=== PATIENT | male | born 1985 | race Two or more races ===

== ENCOUNTER → 2018-10-02 | Outpatient (CLI) | END | disposition home or self-care (01) ==

== ENCOUNTER → 2018-11-03 | Outpatient (CLI) | END | disposition home or self-care (01) ==

== ENCOUNTER → 2018-12-19 | Outpatient (CLI) | payer BC ==
--- NOTE | 2018-12-19 17:07 | CONS ---
Date/Time of Note Date/Time of Note DATE: 12/19/18 TIME: 17:04 Consult Date/Type/Reason Admit Date/Time Initial Consult Date Subjective 33-year-old [id number] male following up today for right shoulder impingement. He has completed 6 weeks of physical therapy. He was taking meloxicam for NSAID regiment. Patient feels significantly better. He did try to play basketball last week and he did have one episode of sharp pain when reaching for rebound, but that quickly resolved. Overall he he is currently pleased with the outcome. Objective Patient vitals reviewed in chart and they are stable and within normal limits. Exam General: Awake, alert, in no acute distress, pleasant and cooperative Heart: regular rhythm Lungs: breathing comfortably, no tachypnea or dyspnea Musculoskeletal: Right shoulder: Skin is intact. There is no atrophy around the shoulder. NTTP. ----- Active = Passive ROM: FE: 160 Abd: 160 ER: 70 IR: T7 Normal lift off or belly press Muscle Strength Supraspinatus: 5/5 Subscapularis: 5/5 Infraspinatus: 5/5 Teres Minor: 5/5 ----- Very mild impingement Mild positive Jn's Test Negative drop Sign Negative Speed's Test Negative Yergason's Sign ----- Sensation intact to light touch in a median, ulnar, radial, and axillary distribution. Motor is intact in a median, ulnar, radial, anterior interosseous, and posterior interosseous nerve distribution. Radial and ulnar artery are +2. Wrist extension and flexion are intact. Compartments are soft Assessment/Plan Chief Complaint/Hosp Course 33-year-old male with right subacromial bursitis and impingement. He is significantly better after conservative treatment. At this time I recommend that he continues with his home exercise program and anti-inflammatory regimen. He should start increasing his activities as tolerated. If he finds that his symptoms are returning and he is not able to tolerate his activities the patient is to return to clinic for possible steroid injection and/or possible MRI. Otherwise he is to follow-up as needed. MANDY BARONE MD Dec 19, 2018 17:07
== END | disposition home or self-care (01) ==
LOC: HKI 14:53
PROVIDERS: ATTEND Orthopaedic Surgery Adult Reconstructive Orthopaedic Surgery
DX: M75.51 Bursitis of right shoulder (principal)
CPT/HCPCS: G0463